=== PATIENT | male | born 1945 | race Caucasian/White ===

== ENCOUNTER → 2017-12-15 | Outpatient (CLI) | payer MEDICARE, OTHER ==
[~2017-12-15] MED LIST: ASPIRIN EC325 MG PO; CYCLOBENZAPRINE5 MG PO; DIOVAN HCT 11 TABLE1 PO; FIBER TABS625 MG PO; FLOMAX0.4 MG PO; HYDROCODON-ACE1 EAC7 PO; IBUPROFEN400 MG PO; IRON325 M1 PO; LEXAPRO10 MG PO; LO-DOSE ASPIRIN81 M1 PO; LYSINE PO; MOBIC15 MG PO; MULTIVITAMIN1 EAC2 PO; NORVASC5 MG PO; PREVACID30 MG PO; SIMVASTATIN20 MG PO
== END | disposition home or self-care (01) ==
LOC: CDC 11:03
DX: Z01.810 Encounter for preprocedural cardiovascular examination (principal); N40.1 Benign prostatic hyperplasia with lower urinary tract symptoms; N13.8 Other obstructive and reflux uropathy; I51.7 Cardiomegaly; R94.31 Abnormal electrocardiogram [ECG] [EKG]
CPT/HCPCS: 93000